=== PATIENT | female | born 1975 | race Caucasian/White ===

== ENCOUNTER → 2018-06-01 | Outpatient (CLI) | payer BC ==
[~2018-06-01] MED LIST: GADOBUTROL 10 MMOL/10 ML (GADAVIST) VIAL IV ONE
--- NOTE | 2018-06-01 16:37 | Diagnostic Imaging Report ---
PROCEDURE: MR imaging of the brain with and without contrast. TECHNIQUE: Multiplanar, multisequence MR imaging of the brain was performed with and without contrast. INDICATION: Reported pituitary lesion. COMPARISON: None available. FINDINGS: Dedicated sequences through the sella demonstrate normal morphology with no suspicious mass or enhancement. No abnormal intracranial signal or enhancement. Normal morphology including the major midline structures, posterior fossa, and cerebellopontine angles. The orbits are unremarkable on this nondedicated exam. No hydrocephalus or extra-axial fluid collections. Normal intracranial flow voids. The paranasal sinuses and mastoids are clear. Normal bone marrow signal. IMPRESSION: Normal MRI of the brain without and with IV contrast. Specifically, there is no evidence of a mass in the sella. Dictated by: Dictated on workstation # [id number]
== END ==
LOC: RAD 15:02
PROVIDERS: ATTEND Internal Medicine
DX: E23.6 Other disorders of pituitary gland (principal)
CPT/HCPCS: 70553

== ENCOUNTER 2018-10-24 12:40 | Emergency (ER) | payer BC ==
[~2018-10-24] VITALS: Ht 175.3 cm; Wt 109.8 kg
--- OUTSIDE RECORDS SUMMARY | 2018-10-24 12:46 | XMS REPORT | Referral Summary ---
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 Discharge Disposition: 01-Home or Self Care Attending Physician: Ian Albert MD Vital Signs Most recent to 1 oldest [Reference Range]: Peripheral Pulse 87 bpm Rate [60-100 bpm] (10/01/17 2:51 PM) Blood Pressure 98/72 mmHg [90-140/60-90 mmHg] (10/01/17 2:51 PM) Problem List Condition Effective Dates Status Health Status Informant Acute Resolved pain(Confirmed) Asthma(Confirmed) Active At risk for activity Resolved intolerance(Confirme d)1 Bronchitis(Confirmed Active ) Depression(Confirmed Active ) Fibromyalgia(Confirm Active patient ed) Greg's Active disease(Confirmed) Hay fever(Confirmed) Active IBS (irritable bowel Active syndrome)(Confirmed) Impaired gas Resolved exchange(Confirmed)2 Migraine(Confirmed) Active patient Pituitary Active tumor(Confirmed) UTI (urinary tract Active infection)(Confirmed ) Chicken Active pox(Confirmed) 1Problem added automatically by system based on initiation of At Risk for Activity Intolerance Plan of Care 2Problem added automatically by system based on initiation of Impaired Gas Exchange Plan of Care Allergies, Adverse Reactions, Alerts Substance Reaction Severity Status Menthol Active Vicks VapoRub Active Medications acetaminophen 650 mg oral tablet, extended release 1,300 mg 2 tabs, Oral, q8hr, as needed for pain, # 24 tabs, 0 Refill(s) Start Date: 09/14/17 Status: Ordered Botox 0 Refill(s) Start Date: 10/01/17 Status: Ordered Claritin 10 mg, Oral, Daily, 0 Refill(s) Start Date: 09/14/16 Status: Ordered Colace 100 mg oral capsule 100 mg 1 caps, Oral, BID, take while taking narcotic pain medication to prevent constipation. May purchase OTC, # 180 caps, 0 Refill(s) Start Date: 01/27/17 Status: Ordered cyclobenzaprine 20 mg, Oral, Bedtime (once a day), 1-2 tablets, 0 Refill(s) Start Date: 09/14/16 Status: Ordered Effexor XR 75 mg, Oral, Daily, Take with 150mg cap to equal 225mg., 0 Refill(s) Start Date: 09/14/16 Status: Ordered Flonase 50 mcg/inh nasal spray 2 sprays, Nasal, Daily, 0 Refill(s) Start Date: 01/26/17 Status: Ordered Lyrica 225 mg, Oral, Daily, 0 Refill(s) Start Date: 09/14/16 Status: Ordered Maxalt 10 mg, Oral, Daily, as needed for migraine headache, 0 Refill(s) Start Date: 09/14/16 Status: Ordered meloxicam 15 mg oral tablet 15 mg 1 tabs, Oral, Daily, # 30 tabs, 0 Refill(s) Start Date: 09/14/17 Status: Ordered NexIUM 20 mg oral delayed release capsule 20 mg 1 caps, Oral, Daily, 0 Refill(s) Start Date: 01/26/17 Status: Ordered ProAir HFA 90 mcg/inh inhalation aerosol 2 puffs, Inhalation, QID, as needed for wheezing, 0 Refill(s) Start Date: 01/26/17 Status: Ordered Singulair 10 mg, Oral, Daily, 0 Refill(s) Start Date: 09/14/16 Status: Ordered Synthroid 25 mcg (0.025 mg) oral tablet 25 mcg 1 tabs, Oral, Daily, # 90 tabs, 1 Refill(s), [facility] [address], 1 tabs Oral Daily Start Date: 10/01/17 Status: Ordered topiramate 100 mg, Oral, BID, 0 Refill(s) Start Date: 01/26/17 Status: Ordered venlafaxine 150 mg oral capsule, extended release 150 mg 1 caps, Oral, Daily, Take with 75mg cap, 0 Refill(s) Start Date: 01/26/17 Status: Ordered Zofran 8 mg, Oral, q8hr, as needed for nausea/vomiting, 0 Refill(s) Start Date: 09/14/16 Status: Ordered ZyrTEC 10 mg, Oral, qPM, 0 Refill(s) Start Date: 09/14/16 Status: Ordered Results No data available for this section Immunizations Given and Recorded Vaccine Date Status Refusal Reason influenza virus vaccine, inactivated 01/27/17 Given Procedures Procedure Date Related Diagnosis Body Site Status Open Reduction Internal Fixation Ankle 01/27/17 Completed (Right)1 Arm repair Completed 1auto-populated from documented surgical case Social History Social History Type Response Smoking Status Never smoker entered on: 09/14/16 Assessment and Plan Extracted from: Title: Office Visit Note Author: Ian Albert MD Date: 10/01/17 1.Pituitary tumor Pituitary function is normal. Overnight dexamethasone suppression test is negative. Serum prolactin is normal. Repeat MRI in6 month. 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 Recheck TSH and free T4 in 6 weeks. Follow-up in 6 month.
--- OUTSIDE RECORDS SUMMARY | 2018-10-24 12:46 | XMS REPORT | Referral Summary ---
Author Author [facility] Organization [facility] Address Unknown Phone Unavailable Encounter [facility] [id number] Date(s): 09/14/16 - 09/14/[address] [facility] [address] [place] [address] Discharge Diagnosis: Closed head injury Discharge Diagnosis: Headache Discharge Disposition: 01-Home or Self Care Attending Physician: Romelia Mckinney DO Admitting Physician: Romelia Mckinney DO Vital Signs Most recent to 1 oldest [Reference Range]: Temperature Oral 36.6 degC [35.8-37.3 degC] (09/14/16 5:30 PM) Peripheral Pulse 86 bpm Rate [60-100 bpm] (09/14/16 6:40 PM) Respiratory Rate 16 br/min [14-20 br/min] (09/14/16 6:40 PM) Blood Pressure 108/75 mmHg [90-140/60-90 mmHg] (09/14/16 6:40 PM) SpO2 98 % (09/14/16 6:40 PM) Problem List Condition Effective Dates Status Health Status Informant Fibromyalgia(Confirm Active patient ed) Migraine(Confirmed) Active patient Allergies, Adverse Reactions, Alerts No Known Allergies Medications Claritin Daily, 0 Refill(s) Start Date: 09/14/16 Status: Ordered cyclobenzaprine Oral, 0 Refill(s) Start Date: 09/14/16 Status: Ordered Effexor XR Oral, Daily, 0 Refill(s) Start Date: 09/14/16 Status: Ordered Lyrica Oral, 0 Refill(s) Start Date: 09/14/16 Status: Ordered Maxalt Oral, Daily, 0 Refill(s) Start Date: 09/14/16 Status: Ordered Mobic Oral, Daily, 0 Refill(s) Start Date: 09/14/16 Status: Ordered Singulair Daily, 0 Refill(s) Start Date: 09/14/16 Status: Ordered verapamil 0 Refill(s) Start Date: 09/14/16 Status: Ordered Zofran 0 Refill(s) Start Date: 09/14/16 Status: Ordered ZyrTEC Daily, 0 Refill(s) Start Date: 09/14/16 Status: Ordered Results No data available for this section Immunizations No data available for this section Procedures Procedure Date Related Diagnosis Body Site Arm repair Social History Social History Type Response Smoking Status Never smoker Assessment and Plan No data available for this section
--- OUTSIDE RECORDS SUMMARY | 2018-10-24 12:46 | XMS REPORT ---
Author Author [facility]. Medical Staff Organization [facility] Address [address] [place] [address] Phone [phone] Summary purpose CCDA Sent to [facility] Chief Complaint and Reason for Visit Admit Diagnosis 1 MIGRAINE W AURA W/O SM Problem list No authorized problems tracked for continuity of care are available for this vis it. Encounters No authorized problems tracked for encounter diagnoses are available for this vi sit. Medications No home medications recorded for this patient visit Allergies, adverse reactions, alerts Allergen Category Ingredient Status Reaction Severity Onset wheat Drug wheat Active Nausea Moderate Adolescence Pork/Porcine Containing Products Drug Pork/Porcine Containing Products Active Nausea Moderate Adolescence Loudon Drug Loudon Active Nausea Moderate Adolescence lettuce Food lettuce Active Nausea Moderate Adolescence ORANGES Food ORANGES Active Nausea Moderate Adolescence Immunizations No immunizations recorded for this patient visit Relevant diagnostic tests and/or laboratory data No authorized results are available for this patient visit History of procedures Procedure Code Code Type Description Date Performed Performing Physician 98779 CPT-4 EMERGENCY DEPT VISIT 08-07-2014 ANGELICA BERMUDEZ 83288 CPT-4 THER/PROPH/DIAG INJ IV PUSH 08-07-2014 ANGELICA BERMUDEZ 87507 CPT-4 THER/PROPH/DIAG INJ SC/IM 08-07-2014 ANGELICA BERMUDEZ J2550 CPT-4 PROMETHAZINE HCL INJECTION 08-07-2014 ANGELICA BERMUDEZ J1100 CPT-4 DEXAMETHASONE SODIUM PHOS 08-07-2014 ANGELICA BERMUDEZ J1885 CPT-4 KETOROLAC TROMETHAMINE INJ 08-07-2014 ANGELICA BERMUDEZ Functional status Cognitive Status Finding Observation Time Level of Consciousne Alert 26-55-004527:21 Oriented to Person Yes 34-28-188002:[address] Yes 80-87-695616:21 Oriented to Time Yes 18-31-497131:21 Vital signs Type Value Date Respirations 20 64-40-465177:19 Pulse 95 53-12-017804:19 O2 Saturation 95% 66-05-380184:19 Systolic Blood Press 109mm/HG 59-77-191147:19 Diastolic Blood Pres 80mm/HG 14-88-435761:19 Temperature (Fahr) 97.8Degrees :19 Social history Type Value Smoking Status NEVER SMOKER Treatment Plan No treatment plan text is available for this visit. Hospital discharge instructions No discharge instruction text is available for this visit.
--- OUTSIDE RECORDS SUMMARY | 2018-10-24 12:46 | XMS REPORT ---
Author Author [facility]. Medical Staff Organization [facility] Address [address] [place] [address] Phone [phone] Summary purpose CCDA Sent to [facility] Chief Complaint and Reason for Visit Admit Diagnosis 1 MIGRAINE W AURA W/O SM Problem list No authorized problems tracked for continuity of care are available for this vis it. Encounters No authorized problems tracked for encounter diagnoses are available for this vi sit. Medications Home Medications Medication Directions Started Status Source montelukast 10 mg tablet 1 tablet oral -Daily Current cyclobenzaprine 10 mg tablet 1-2 tablet oral At bed time Current Nexium 24HR 20 mg capsule,delayed release 1 capsule oral -Daily Current Effexor XR 150 mg capsule,extended release 1 capsule oral -Daily Current fluticasone 50 mcg/actuation blister powder for inhalation 2 spray inhl -Daily Current loratadine 10 mg tablet 1 tablet oral -Daily Current meloxicam 15 mg tablet 1 tablet oral -Daily Current topiramate 100 mg tablet 1 tablet oral 2 times per day Current Lyrica 225 mg capsule 1 capsule oral -Daily Current Zofran 8 mg tablet 1 tablet oral As Needed Every 8 Hours Current amoxicillin 875 mg-potassium clavulanate 125 mg tablet 1 capsule oral 2 times per day Current rizatriptan 10 mg tablet 1 tablet oral As needed Current Mucinex D Maximum Strength 120 mg-1,200 mg tablet,extended release 1 tablet oral As Needed Every 4 Hours Current Allergies, adverse reactions, alerts Allergen Category Ingredient Status Reaction Severity Onset wheat Drug wheat Active Nausea Moderate Adolescence Pork/Porcine Containing Products Drug Pork/Porcine Containing Products Active Nausea Moderate Adolescence Phoenix Drug Phoenix Active Nausea Moderate Adolescence lettuce Food lettuce Active Nausea Moderate Adolescence ORANGES Food ORANGES Active Nausea Moderate Adolescence Immunizations No immunizations recorded for this patient visit Relevant diagnostic tests and/or laboratory data No authorized results are available for this patient visit History of procedures Procedure Code Code Type Description Date Performed Performing Physician 82762 CPT-4 EMERGENCY DEPT VISIT 06-16-2014 MALORIE MAYNARD 48096 CPT-4 THER/PROPH/DIAG INJ, SC/IM 06-16-2014 MALORIE MAYNARD J1885 CPT-4 KETOROLAC TROMETHAMINE INJ 06-16-2014 MALORIE MAYNARD J2550 CPT-4 PROMETHAZINE HCL INJECTION 06-16-2014 MALORIE MAYNARD Functional status Cognitive Status Finding Observation Time Level of Consciousne Alert :32 Oriented to Person Yes :[address] Yes :32 Oriented to Time Yes 08-10-767502:32 Vital signs Type Value Date Respirations 12 29-88-279802:35 Pulse 74 :21 O2 Saturation 96% :35 Systolic Blood Press 110mm/HG 15-89-938371:21 Diastolic Blood Pres 68mm/HG 94-03-854460:21 Temperature (Fahr) 97.5Degrees :35 Social history Type Value Smoking Status NEVER SMOKER Treatment Plan No treatment plan text is available for this visit. Hospital discharge instructions No discharge instruction text is available for this visit.
--- OUTSIDE RECORDS SUMMARY | 2018-10-24 12:46 | XMS REPORT | Referral Summary ---
Author Author [facility] Organization [facility] Address Unknown Phone Unavailable Encounter [facility] [id number] Date(s): 01/26/17 - 01/29/17 [facility] [address] [place] [address] [phone] Discharge Disposition: 01-Home or Self Care Attending Physician: Dwaine Aguilera MD Admitting Physician: Dwaine Aguilera MD Vital Signs Most recent to 1 oldest [Reference Range]: Temperature Oral 36.6 degC [35.8-37.3 degC] (01/29/17 4:00 PM) Temperature Skin 36.1 degC [36-37 degC] (01/27/17 8:14 AM) Temperature Temporal 36 degC Artery [36.3-37.8 *LOW* degC] (01/27/17 6:00 AM) Peripheral Pulse 103 bpm Rate [60-100 bpm] *HI* (01/29/17 4:00 PM) Heart Rate Monitored 75 bpm [60-100 bpm] (01/27/17 10:08 AM) Respiratory Rate 16 br/min [14-20 br/min] (01/29/17 4:00 PM) Blood Pressure 122/77 mmHg [90-140/60-90 mmHg] (01/29/17 4:00 PM) Mean Arterial 75 mmHg Pressure, Cuff (01/27/17 9:20 AM) SpO2 96 % (01/29/17 4:00 PM) Problem List Condition Effective Dates Status Health Status Informant Acute Resolved pain(Confirmed) At risk for activity Resolved intolerance(Confirme d)1 Fibromyalgia(Confirm Active patient ed) Impaired gas Resolved exchange(Confirmed)2 Migraine(Confirmed) Active patient 1Problem added automatically by system based on initiation of At Risk for Activity Intolerance Plan of Care 2Problem added automatically by system based on initiation of Impaired Gas Exchange Plan of Care Allergies, Adverse Reactions, Alerts Substance Reaction Severity Status Vicks VapoRub Active Medications Claritin 10 mg, Oral, Daily, 0 Refill(s) [...] 0 Refill(s) Start Date: 09/14/16 Status: Ordered NexIUM 20 mg oral delayed release capsule 20 mg 1 caps, Oral, Daily, 0 Refill(s) Start Date: 01/26/17 Status: Ordered Percocet 5/325 oral tablet 1-2 tabs, Oral, q4hr, Pain Moderate (4-6), not to exceed 10 tablets/24 hours; ta ke with food to prevent nausea, # 86 tabs, 0 Refill(s) Start Date: 01/28/17 Stop Date: 02/28/17 Status: Ordered ProAir HFA 90 mcg/inh inhalation aerosol 2 puffs, Inhalation, QID, as needed for wheezing, 0 Refill(s) Start Date: 01/26/17 Status: Ordered Singulair 10 mg, Oral, Daily, 0 Refill(s) Start Date: 09/14/16 Status: Ordered topiramate 100 mg, Oral, BID, 0 Refill(s) Start Date: 01/26/17 Status: Ordered venlafaxine 150 mg oral capsule, extended release 150 mg 1 caps, Oral, Daily, Take with 75mg cap, 0 Refill(s) Start Date: 01/26/17 Status: Ordered verapamil 80 mg, Oral, qPM, 0 Refill(s) Start Date: 09/14/16 Status: Ordered verapamil 40 mg, Oral, qAM, 0 Refill(s) Start Date: 01/26/17 Status: Ordered Walker (DME) DME Item FWW Dx: R trimalleolar ankle fracture S/P ORIF Duration: 16 weeks H: 176.53 cm W: 123.9 kg, See Instructions, # 1 Each, 0 Refill(s), Supply Start Date: 01/27/17 Status: Ordered Wheelchair (DME) DME Item wheelchair with leg lifts Dx: R trimalleolar ankle fracture S/P ORIF Duration: 16 weeks H: 176.53 W:123.9kg, See Instructions, # 1 Each, 0 Refill(s ), Supply Start Date: 01/28/17 Status: Ordered Xarelto 10 mg oral tablet 10 mg 1 tabs, Oral, Daily, take daily at 9:00 AM until gone for DVT prevention, # 20 tabs, 0 Refill(s) Start Date: 01/27/17 Status: Ordered Zofran 8 mg, Oral, q8hr, as needed for nausea/vomiting, 0 Refill(s) Start Date: 09/14/16 Status: Ordered ZyrTEC 10 mg, Oral, qPM, 0 Refill(s) Start Date: 09/14/16 Status: Ordered Results Hematology Most recent to 1 oldest [Reference Range]: WBC [4.8-10.8 6.8 10*3/uL 10*3/uL] (01/29/17 5:15 AM) RBC [4.00-5.20] 3.84 *LOW* (01/29/17 5:15 AM) Hgb [12.0-16.0 10.9 gm/dL gm/dL] *LOW* (01/29/17 5:15 AM) Hct [37.0-47.0 %] 35.0 % *LOW* (01/29/17 5:15 AM) MCV [82.0-99.0 fL] 91.1 fL (01/29/17 5:15 AM) MCH [27.0-32.0 pg] 28.4 pg (01/29/17 5:15 AM) MCHC [32.0-36.0 31.1 gm/dL gm/dL] *LOW* (01/29/17 5:15 AM) RDW [11.5-14.5 %] 14.1 % (01/29/17 5:15 AM) Platelet [150-400 225 10*3/uL 10*3/uL] (01/29/17 5:15 AM) MPV [9.4-12.4 fL] 10.2 fL (01/29/17 5:15 AM) Immature 0.3 % Granulocytes (01/26/17 7:15 PM) [0.0-1.0 %] Neutrophils [51-75 70 % %] (01/26/17 7:15 PM) Lymphocytes [20-46 21 % %] (01/26/17 7:15 PM) Monocytes [4-11 %] 6 % (01/26/17 7:15 PM) Eosinophils [0-4 %] 3 % (01/26/17 7:15 PM) Basophils [0-2 %] 0 % (01/26/17 7:15 PM) Neutro Absolute 4.73 [1.90-7.00] (01/26/17 7:15 PM) Lymph Absolute 1.44 [0.80-3.30] (01/26/17 7:15 PM) Hand Absolute 0.41 [0.30-1.00] (01/26/17 7:15 PM) Eos Absolute 0.19 [0.00-0.50] (01/26/17 7:15 PM) Baso Absolute 0.01 [0.00-0.20] (01/26/17 7:15 PM) Nucleated RBC 0.0 /100 WBC Automated [0 /100 (01/26/17 7:15 PM) WBC] Coagulation Most recent to 1 oldest [Reference Range]: INR [0.9-1.2] 1.2 (01/26/17 7:15 PM) Chemistry Most recent to 1 oldest [Reference Range]: Sodium Lvl [136-144 140 mEq/L mEq/L] (01/29/17 5:15 AM) Potassium Lvl 3.9 mEq/L [3.6-5.1 mEq/L] (01/29/17 5:15 AM) Chloride [99-109 107 mEq/L mEq/L] (01/29/17 5:15 AM) CO2 [22-32 mEq/L] 25 mEq/L (01/29/17 5:15 AM) AGAP [3-20 mEq/L] 8 mEq/L (01/29/17 5:15 AM) BUN [4-20 mg/dL] 10 mg/dL (01/29/17 5:15 AM) Glucose Lvl [70-100 97 mg/dL mg/dL] (01/29/17 5:15 AM) Creatinine Lvl 0.98 mg/dL [0.44-1.03 mg/dL] (01/29/17 5:15 AM) eGFR [>60 mL/min] >60 mL/min 1 (01/29/17 5:15 AM) Calcium Lvl 8.1 mg/dL [8.6-10.0 mg/dL] *LOW* (01/29/17 5:15 AM) Albumin Lvl [3.5-4.8 3.1 gm/dL gm/dL] *LOW* (01/26/17 7:15 PM) Total Protein 6.0 gm/dL [6.1-7.9 gm/dL] *LOW* (01/26/17 7:15 PM) Globulin [1.9-4.3 2.9 gm/dL gm/dL] (01/26/17 7:15 PM) ALT [14-54 U/L] 10 U/L *LOW* (01/26/17 7:15 PM) AST [15-41 U/L] 14 U/L *LOW* (01/26/17 7:15 PM) Alk Phos [26-104 65 U/L U/L] (01/26/17 7:15 PM) Bili Total [0.2-1.2 0.2 mg/dL 2 mg/dL] (01/26/17 7:15 PM) Blood Glucose, 94 mg/dL Capillary [70-100 (01/27/17 5:15 AM) mg/dL] 1Result Comment: Multiply eGFR results by 1.21 for race. 2Result Comment: Naproxen, specifically the metabolite O-desmethylnaproxen, may cause spurious elevation in Total Bilirubin levels. Immunizations Given and Recorded Vaccine Date Status Refusal Reason influenza virus vaccine, inactivated 01/27/17 Given Procedures Procedure Date Related Diagnosis Body Site Open Reduction Internal Fixation Ankle 01/27/17 (Right)1 Arm repair 1auto-populated from documented surgical case Social History Social History Type Response Smoking Status Never smoker entered on: 09/14/16 Assessment and Plan No data available for this section
--- OUTSIDE RECORDS SUMMARY | 2018-10-24 12:46 | XMS REPORT | Referral Summary ---
Author Author [facility] Organization [facility] Address Unknown Phone Unavailable Care Team Providers Care Sap Director Name Role Phone Freddie Joseph PCP Encounter [facility] [id number] Date(s): 09/14/17 - 09/14/17 [facility] [address] [place], [place] [address] Encounter Diagnosis Pituitary tumor (Discharge Diagnosis) - 09/14/17 Discharge Disposition: 01-Home or Self Care Attending Physician: Ian Albert MD Vital Signs Most recent to 1 oldest [Reference Range]: Peripheral Pulse 112 bpm Rate [60-100 bpm] *HI* (09/14/17 12:56 PM) Blood Pressure 118/78 mmHg [90-140/60-90 mmHg] (09/14/17 12:56 PM) Problem List Condition Effective Dates Status Health Status Informant Acute Resolved pain(Confirmed) At risk for activity Resolved intolerance(Confirme d)1 Fibromyalgia(Confirm Active patient ed) Impaired gas Resolved exchange(Confirmed)2 Migraine(Confirmed) Active patient Pituitary Active tumor(Confirmed) 1Problem added automatically by system based on [...] 0 Refill(s) Start Date: 09/14/17 Status: Ordered Claritin 10 mg, Oral, Daily, [...] Refill(s) Start Date: 09/14/16 Status: Ordered Results Chemistry Most recent to 1 oldest [Reference Range]: LH 6.6 mIU/mL 1 (09/14/17 2:16 PM) FSH 4.4 mIU/mL 2 (09/14/17 2:16 PM) Prolactin [5.2-26.5 6.1 ng/mL ng/mL] (09/14/17 2:16 PM) Cortisol AM [3-20 7 mcg/dL mcg/dL] (09/14/17 2:16 PM) T4 Free [0.7-1.5 0.8 ng/dL ng/dL] (09/14/17 2:16 PM) TSH [0.35-4.94 2.85 mcIU/mL mcIU/mL] (09/14/17 2:16 PM) Thyroperoxidase Ab 58 Intl Units/mL (TPO) [0-6 Intl *HI* Units/mL] (09/14/17 2:16 PM) Thyroglob Ab [0-5 16 Intl Units/mL Intl Units/mL] *HI* (09/14/17 2:16 PM) Estradiol Lvl 192 pg/mL 3 (09/14/17 2:16 PM) 1Result Comment: Adult Female normal for Luteinizing Hormone: Follicular phase: 1.8 - 11.8 mIU/mL Mid-cycle: 7.6 - 89.1 mIU/mL Luteal phase: <1 - 14.0 mIU/mL Post-menopausal: 5.2 - 70.0 mIU/mL 2Result Comment: Adult Female ranges: Follicular: 3.0 - 8.1 mIU/mL Mid-cycle: 2.6 - 16.7 mIU/mL Luteal Phase 1.4 - 5.5 mIU/mL Post-menopausal 26.7 - 133.4 mIU/mL 3Result Comment: Normal ranges: Menopausal: 0 - 28 pg/mL Treated menopausal 0 - 144 pg/mL Follicular phase: 21 - 251 pg/mL Mid-Cycle Phase 38 - 649 pg/mL Luteal phase: 21 - 312 pg/mL Falsely elevated Estradiol results may be seen in patients taking the drug Fulvestrant. Immunizations Given and Recorded Vaccine Date Status [...] Visit Note Author: Ian Albert MD Date: 09/14/17 1.Pituitary tumor Check ACTH and cortisol. Overnight dexamethasone suppression test. Check serum prolactin. Check TSH with free T4 and thyroid antibodies. Follow-up after labs. Ordered: Adrenocorticotropic Hormone-[facility] Cortisol AM Estradiol Level Free T4 FSH and LH Insulin-Like Growth Factor-1,LC-MS,S-[facility] Prolactin Level Thyroglobulin Antibody Thyroperoxidase Ab (TPO) TSH 3rd Generation
--- OUTSIDE RECORDS SUMMARY | 2018-10-24 12:47 | XMS REPORT ---
Author Author [facility]. Medical Staff Organization [facility]. Address [address] [place] [address] Phone [phone] Summary purpose CCDA Sent to [facility] Chief Complaint and Reason for Visit Admit Diagnosis 1 FEVER NOS Problem list No authorized problems tracked for continuity of care are available for this vis it. Encounters No authorized problems tracked for encounter diagnoses are available for this vi sit. Medications No home medications recorded for this patient visit Allergies, adverse reactions, alerts No allergy information is available for this patient. Immunizations No immunizations recorded for this patient visit Relevant diagnostic tests and/or laboratory data No authorized results are available for this patient visit History of procedures Procedure Code Code Type Description Date Performed Performing Physician 98798 CPT-4 INFLUENZA ASSAY W/OPTIC 05-07-2014 [facility] 27064 CPT-4 INFLUENZA ASSAY W/OPTIC 05-07-2014 [facility] Functional status No functional or cognitive status observations are available for this visit. Vital signs No authorized vital signs are available for this visit. Social history No Social History or smoking status observations were recorded for this visit. ( Unknown if ever smoked.) Treatment Plan No treatment plan text is available for this visit. Hospital discharge instructions No discharge instruction text is available for this visit.
--- OUTSIDE RECORDS SUMMARY | 2018-10-24 12:47 | XMS REPORT ---
Author Author [facility]. Medical Staff Organization [facility]. Address [address] [place] [address] Phone [phone] Summary purpose CCDA Sent to [facility] Chief Complaint and Reason for Visit No authorized Reason for Visit (Admitting Diagnosis) is available for this visit . Problem list No authorized problems tracked for [...] for this patient visit History of procedures No procedures recorded for this patient visit. Functional status No functional or cognitive status [...]
--- OUTSIDE RECORDS SUMMARY | 2018-10-24 12:47 | XMS REPORT | Continuity of Care Document ---
Author Author [facility] Organization [facility] Address [address] [place] [address] Care Team Providers Care Telecommunications Field Technician Name Role Phone Freddie Joseph PCP Freddie Joseph Attphys Allergies, Adverse Reactions, Alerts Allergen Type Severity Reaction Last Updated Verified Status menthol Allergy Moderate Swelling of Lip/Tongue/Throat April 07, 2018 Y Active Medications Active Medications Medication Dose Units Route Sig Start Date Status Instructions Acetaminophen [8hr Muscle Aches-Pain] 2 EACH PO Twice a Day April 07, 2018 Active Cetirizine Hcl 1 TAB PO Daily April 07, 2018 Active Cyclobenzaprine [Flexeril] 2 TAB PO Bedtime April 07, 2018 Active Docusate Sodium 200 MG PO Twice a Day April 07, 2018 Active Esomeprazole Magnesium [Nexium] 20 MG PO Bedtime April 07, 2018 Active Fluticasone Propionate 2 EACH NS Bedtime April 07, 2018 Active Levothyroxine Tab [Synthroid] 50 MCG PO Before Breakfast April 07, 2018 Active Linaclotide [Linzess] 72 MCG PO 3 TIMES A WEEK April 07, 2018 Active takes every other day Loratadine [Claritin] 10 MG PO Bedtime April 07, 2018 Active Melatonin/Pyridoxine Hcl (B6) [Melatonin 3 Mg Tablet] 1 EACH PO Bedtime April 07, 2018 Active Montelukast [Singulair] 10 MG PO Bedtime April 07, 2018 Active Pregabalin [Lyrica] 225 MG PO Daily April 07, 2018 Active Topiramate 100 MG PO Twice a Day April 07, 2018 Active Venlafaxine Xr [Effexor Xr] 150 MG PO Daily April 07, 2018 Active Venlaflaxine Xr [Effexor Xr] 75 MG PO Daily April 07, 2018 Active Erenumab-Aooe [Aimovig Autoinjector] 70 MG SQ 1 Month April 07, 2018 Active Ondansetron Hcl [Zofran] 4 MG PO Prn April 07, 2018 Active Rizatriptan Benzoate [Maxalt] 10 MG PO Prn April 07, 2018 Active Problem List No problem information available. Procedures Procedure Date Status Provider(s) April 07, 2018 completed Freddie Joseph MD April 07, 2018 completed Freddie Joseph MD Helicobacter pylori Rapid Urease April 07, 2018 active Relevant Diagnostic Tests and/or Laboratory Data No known relevant diagnostic tests, laboratory data, and/or discharge summary. Advance Directives Advance Directive Response Recorded Date/Time Advance Directives No April 07, 2018 8:47am Advance Directives on File No April 07, 2018 8:47am Health Care Proxy No April 07, 2018 8:47am Living Will No April 07, 2018 8:47am Chief Complaint and Reason for Visit Encounter Admit Date Chief Complaint Reason for Visit Departed Surgical Day Care April 07, 2018 8:03am Chronic constipation/Chronic gastritis Hospital Discharge Instructions Query Response Comment Date/Time Activity As tolerated. POST OP APPT W DR JOSEPH FOR 04/07/2018 12:24 Hospital Discharge Medications Medication Dose Units Route Sig Qty Days Order Date Status Instructions Acetaminophen 2 EACH PO Twice a Day April 07, 2018 Active Cetirizine Hcl 1 TAB PO Daily April 07, 2018 Active Cyclobenzaprine 2 TAB PO Bedtime April 07, 2018 Active Docusate Sodium 200 MG PO Twice a Day April 07, 2018 Active Esomeprazole Magnesium 20 MG PO Bedtime April 07, 2018 Active Fluticasone Propionate 2 EACH NS Bedtime April 07, 2018 Active Levothyroxine Tab 50 MCG PO Before Breakfast April 07, 2018 Active Linaclotide 72 MCG PO 3 TIMES A WEEK April 07, 2018 Active takes every other day Loratadine 10 MG PO Bedtime April 07, 2018 Active Melatonin/Pyridoxine Hcl (B6) 1 EACH PO Bedtime April 07, 2018 Active Montelukast 10 MG PO Bedtime April 07, 2018 Active Pregabalin 225 MG PO Daily April 07, 2018 Active Topiramate 100 MG PO Twice a Day April 07, 2018 Active Venlafaxine Xr 150 MG PO Daily April 07, 2018 Active Venlaflaxine Xr 75 MG PO Daily April 07, 2018 Active Erenumab-Aooe 70 MG SQ 1 Month April 07, 2018 Active Ondansetron Hcl 4 MG PO Prn April 07, 2018 Active Rizatriptan Benzoate 10 MG PO Prn April 07, 2018 Active Encounters Encounter Facility Location Admit/Visit Date Discharge/Departure Date Attending Provider Departed Surgical Day Care [facility] Services April 07, 2018 8:03am April 07, 2018 1:09pm Freddie Joseph Functional Status No known functional status. Immunizations No known immunizations. Payers Payer Name Policy Type Covered Alliance Party Covered Alliance Party Id Relationship Subscriber Subscriber Id Camden Álvaro [facility] Commercial [id number] Self/Same As Patient [id number] OM Latam [id number] Self Pay Personal Payment (Suárez - No Insurance) Plan of Care Instructions [facility] [facility] Social History Query Response Date Recorded Comment substance use type does not use April 07, 2018 9:02am Vital Signs Vital Reading Result Reference Range Collection Date/Time Height 5 ft 9.5 in April 07, 2018 8:15am Weight 112.5 kg April 07, 2018 8:15am Temperature 97.4 F 96.8 F-100.4 F April 07, 2018 11:50am Pulse 80 BPM 60-100 April 07, 2018 12:45pm Respiration 15 RPM 10-24 April 07, 2018 12:45pm Pulse Oximetry 98 % 90-100 April 07, 2018 12:45pm Blood Pressure Systolic 108 -139 April 07, 2018 12:45pm Blood Pressure Diastolic 73 -89 April 07, 2018 12:45pm Body Mass Index 36.1 April 07, 2018 8:15am
--- OUTSIDE RECORDS SUMMARY | 2018-10-24 12:47 | XMS REPORT | Continuity of Care Document ---
Author Organization Unknown Address Unknown Allergies Active Description Code Type Severity Reaction Onset Reported/Identified Relationship to Patient Clinical Status Yes No Known Drug Allergy 51895179 Drug Allergy N/A N/A Confirmed but inactive Yes MENTHOL 6750 N/A N/A Yes MENTHOL 5999112 Drug Allergy N/A N/A Yes NKDA N/A N/A Yes VICKS Drug Allergy N/A N/A Yes methol [id number] Miscellaneous Allergy Moderate rash~shortness of breath Yes [place] 6695 Drug Allergy Moderate Nausea 06/16/2014 Yes lettuce Food Allergy Moderate Nausea 06/16/2014 Yes ORANGES Food Allergy Moderate Nausea 06/16/2014 Yes Pork/Porcine Containing Products 994599 Drug Allergy Moderate Nausea 06/16/2014 Yes wheat 28412 Drug Allergy Moderate Nausea 06/16/2014 Yes menthol 1991 Drug Allergy N/A N/A 03/28/2016 Confirmed or Verified Medications Medication Packaging Start Date Stop Date Route Dosage Sig [id number] 12/12/2014 ORAL twice daily [id number] 01/10/2015 ORAL twice daily topiramate 100 MG Oral Tablet 05/05/2018 1 meloxicam 15 MG Oral Tablet 05/05/2018 1 meloxicam 7.5 MG Oral Tablet 05/25/2018 1 Q1D topiramate 100 MG Oral Tablet 08/08/2018 1 Problems Date Dx Coded Attending Type Code Diagnosis Diagnosed By 02/25/2012 Kasandra 785.0 TACHYCARDIA NOS 12/10/2012 LARA SANTO, JOANN Slaughter 724.1 PAIN IN THORACIC SPINE 03/15/2013 LINDA REIS MD 719.43 JOINT PAIN-FOREARM 03/15/2013 LINDA REIS MD 914.0 ABRASION HAND 03/15/2013 LINDA REIS MD E917.8 OTH STATNRY OBJ W/ FALL 05/07/2014 LINDA REIS MD 780.60 FEVER NOS 05/07/2014 KELSEY COLE MD, LINDA Slaughter 786.2 COUGH 06/16/2014 D 346.00 MIGRAINE W AURA W/O SM 06/16/2014 D 461.8 OTHER ACUTE SINUSITIS 06/17/2014 Cherelle SANTO, Quinn Sanchez 346.00 Classic migraine 08/07/2014 Cherelle SANTO, Quinn Sanchez 346.00 Classic migraine 08/07/2014 Cherelle SANTO, Quinn Sanchez G43.109 Migraine with aura, not intractable, without status migrainosus 08/07/2014 LARA SANTO, ANGELICA Slaughter 346.00 MIGRAINE W AURA W/O SM 05/10/2015 Cherelle SANTO, Quinn Sanchez 461.0 Acute maxillary sinusitis 05/10/2015 Cherelle SANTO, Quinn Sanchez J01.00 Acute maxillary sinusitis, unspecified 12/06/2015 Cherelle SANTO, Quinn Sanchez 788.1 Dysuria 12/06/2015 Cherelle SANTO, Quinn Sanchez 788.1 Dysuria 12/06/2015 Cherelle SANTO, Quinn Sanchez R30.0 Dysuria 12/11/2015 Cherelle SANTO, Quinn Sanchez 780.79 Fatigue 12/11/2015 Cherelle SANTO, Quinn Sanchez R53.82 Chronic fatigue, unspecified 12/11/2015 Cherelle SANTO, Quinn Sanchez 724.2 Low back pain 12/11/2015 Cherelle SANTO, Quinn Sanchez M54.40 Lumbago with sciatica, unspecified side 12/11/2015 Cherelle SANTO, Quinn Sanchez M54.5 Low back pain 03/28/2016 Cherelle SANTO, Quinn Sanchez 462 Acute infective pharyngitis 03/28/2016 Cherelle SANTO, Quinn Sanchez J02.8 Acute pharyngitis due to other specified organisms 03/28/2016 ALYX RAMOS J02.8 Acute pharyngitis due to other specified organisms 03/28/2016 SHERRILL MAYERS, ALYX Gonzáles J02.9 Acute pharyngitis, unspecified 04/16/2016 Quinn Villarreal MD 784.1 Sore throat 04/16/2016 Quinn Villarreal MD R07.0 Pain in throat 06/11/2016 Quinn Villarreal MD E885.9 Fall from other slipping, tripping, or stumbling 06/11/2016 Quinn Villarreal MD W01.0XXA Fall on same level from slipping, tripping and stumbling without subsequent striking against object, initial encounter 06/11/2016 Quinn Villarreal MD W18.49XA Other slipping, tripping and stumbling without falling, initial encounter 06/11/2016 Quinn Villarreal MD 719.41 Shoulder pain 06/11/2016 Quinn Villarreal MD M25.519 Pain in unspecified shoulder 06/11/2016 Quinn Villarreal MD 724.5 Mid back pain 06/11/2016 Quinn Villarreal MD 724.5 Mid back pain 06/11/2016 Quinn Villarreal MD M54.5 Low back pain 06/11/2016 Quinn Villarreal MD 719.46 Knee pain 06/11/2016 Quinn Villarreal MD M25.562 Pain in left knee 08/10/2016 Quinn Villarreal MD 599.0 UTI 08/10/2016 Quinn Villarreal MD N39.0 Urinary tract infection, site not specified 02/18/2018 BISHOP COTE V70.0 ROUTINE GENERAL MEDICAL EXAMINATION AT A HEALTH CARE FACILITY 02/18/2018 BISHOP COTE Z00.00 Encounter for general adult medical examination without abnormal findings 02/18/2018 BISHOP COTE K29.50 Unspecified chronic gastritis without bleeding 02/18/2018 BISHOP COTE K59.09 Other constipation 02/18/2018 BISHOP COTE Z12.31 Encounter for screening mammogram for malignant neoplasm of breast 02/18/2018 BISHOP COTE N94.6 Dysmenorrhea, unspecified 04/22/2018 BRANDT FERREIRA K31.9 Disease of stomach and duodenum, unspecified 04/22/2018 MELISAJESSENIABRANDT F M79.7 Fibromyalgia 09/26/2018 BRANDT FERREIRA F R53.83 Other fatigue 09/26/2018 BRANDT FERREIRA F M79.7 Fibromyalgia 09/26/2018 BRANDT FERREIRA F E03.9 Hypothyroidism, unspecified 10/10/2018 BRANDT FERREIRA F G47.33 Obstructive sleep apnea (adult) (pediatric) 10/10/2018 BRANDT FERREIRA F R53.83 Other fatigue 10/10/2018 BRANDT FERREIRA F F32.9 Major depressive disorder, single episode, unspecified Procedures Code Description [place] [address] ASSAY THYROID STIM HORMONE KELSEY COLE MD, LINDA Bo 02/25/2012 71883 COMPLETE CBC, AUTOMATED KELSEY COLE MD, LINDA R 02/25/2012 66766 PT EVALUATION LARA SANTO, JOANN 11/14/2012 79497 ULTRASOUND LANA BERMUDEZ MD, JOANN 11/14/2012 52579 THERAPEUTIC EXERCISES LARA SANTO, JOANN 11/14/2012 25045 MANUAL LANA BERMUDEZ MD, JOANN 11/14/2012 65232 THERAPEUTIC EXERCISES LARA SANTO, JOANN 11/17/2012 89921 MANUAL LANA BERMUDEZ MD, JOANN 11/17/2012 91429 MANUAL LANA BERMUDEZ MD, JOANN 11/22/2012 67322 ULTRASOUND LANA BERMUDEZ MD, JOANN 11/24/2012 84749 MANUAL LANA BERMUDEZ MD, JOANN 11/24/2012 69162 ULTRASOUND LANA BERMUDEZ MD, JOANN 11/29/2012 92830 MANUAL LANA BERMUDEZ MD, JOANN 11/29/2012 83789 ULTRASOUND LANA BERMUDEZ MD, JOANN 12/01/2012 32610 MANUAL LANA BERMUDEZ MD, JOANN 12/01/2012 18792 ULTRASOUND LANA BERMUDEZ MD, JOANN 12/09/2012 56680 MANUAL LANA BERMUDEZ MD, JOANN 12/09/2012 04748 X-RAY EXAM OF HAND ANGELICA BERMUDEZ MD/04/2013 81704 EMERGENCY DEPT VISIT ANGELICA BERMUDEZ MD 03/15/2013 39554 INFLUENZA ASSAY W/OPTIC LINDA REIS MD 05/07/2014 45703 THER/PROPH/DIAG INJ, SC/IM CAESAR MAYERS, MALORIE L 06/16/2014 94735 EMERGENCY DEPT VISIT EVELINA LINI L 06/16/2014 J1885 KETOROLAC TROMETHAMINE INJ CAESAR MAYERS, MALORIE L 06/16/2014 J2550 PROMETHAZINE HCL INJECTION CAESAR MAYERS MALORIE L 06/16/2014 25889 Therapeutic, prophylatic or diagnostic injection (specify substance or drug); subcutaneous or intram 07/18/2014 FU1MO Follow up appointment in 1 month 07/19/2014 95452 Office/outpatient visit; established patient, level 4 07/19/2014 04950 THER/PROPH/DIAG INJ, SC/IM ANGELICA BERMUDEZ MD 08/07/2014 32224 THER/PROPH/DIAG INJ, IV PUSH ANGELICA BERMUDEZ MD 08/07/2014 07002 EMERGENCY DEPT VISIT ANGELICA BERMUDEZ MD 08/07/2014 J1100 DEXAMETHOSONE NA PHOSPHATE ANGELICA BERMUDEZ MD 08/07/2014 J1885 KETOROLAC TROMETHAMINE INJ ANGELICA BERMUDEZ MD 08/07/2014 J2550 PROMETHAZINE HCL INJECTION ANGELICA BERMUDEZ MD 08/07/2014 TCARE1 Transfer of Care from Emergency Department 08/08/2014 44061 Office/outpatient visit; established patient, level 4 08/08/2014 76000 Office/outpatient visit; established patient, level 3 08/28/2014 12153 Office/outpatient visit; established patient, level 3 05/10/2015 FOL Set followup appointment at our facility 11/05/2015 29008 Office/outpatient visit; established patient, level 3 11/05/2015 55901 Office/outpatient visit; established patient, level 3 12/06/2015 53967 Office/outpatient visit; established patient, level 3 12/11/2015 92102 Office/outpatient visit; established patient, level 4 12/11/2015 03646 THER/PROPH/DIAG INJ, SC/IM ALYX RAMOS 03/28/2016 57487 EMERGENCY DEPT VISIT ALYX ARMOS 03/28/2016 J0696 CEFTRIAXONE SODIUM INJECTION ALYX RAMOS N 03/28/2016 J1885 KETOROLAC TROMETHAMINE INJ ALYX RAMOS N 03/28/2016 99432 Therapeutic, prophylatic or diagnostic injection (specify substance or drug); subcutaneous or intram 03/28/2016 60141 Therapeutic, prophylactic or diagnostic injection; subcutaneous or intramuscular 03/28/2016 J0696 Ceftriaxone Sodium, per 250 mg 03/28/2016 64045 Therapeutic, prophylatic or diagnostic injection (specify substance or drug); subcutaneous or intram 03/28/2016 89446 Therapeutic, prophylactic or diagnostic injection; subcutaneous or intramuscular 03/28/2016 J0696 Ceftriaxone Sodium, per 250 mg 03/28/2016 31441 Emergency department visit moderate severity 03/28/2016 09017 Particle agglutination screen 04/17/2016 74897 Office/outpatient visit; established patient, level 3 04/17/2016 78418 Radiologic examination, ribs, unilateral; two views 06/11/2016 FU10D Follow up appointment in 10 days 06/11/2016 86940 Office/outpatient visit; established patient, level 4 06/11/2016 95723 Radiologic examination, ribs, unilateral; two views 06/23/2016 72666 Office/outpatient visit; established patient, level 4 06/23/2016 FU10D Follow up appointment in 10 days 06/23/2016 12004 Office/outpatient visit; established patient, level 3 06/27/2016 62347 Urinalysis, nonautomated without microscopy 08/10/2016 27654 Office/outpatient visit; established patient, level 4 08/10/2016 90091 PREVENTIVE MEDICINE- 02/18/2018 33934 EXAM-DETAILED. 04/22/2018 01176 EXAM-DETAILED. 09/26/2018 58490 EXAM-DETAILED. 10/10/2018 Results Test Result Range Influenza A B - 05/07/14 15:26 Influenza A NEG Negative Influenza B NEG Negative TSH - 05/29/14 14:05 TSH 4.49 UIUML 0.50-6.00 CMP, SERUM OR PLASMA - 02/18/18 16:49 GLOBULIN, QN, CALCULATED, SERUM 2.4 g/dL 1.5-4.5 ALT (ALANINE AMINOTRANSFERASE), SERUM OR PLASMA 9 IU/L 0-32 ALBUMIN, SERUM OR PLASMA 4.3 g/dL 3.5-5.5 ALBUMIN:GLOBULIN RATIO, SERUM 1.8 1.2-2.2 CALCIUM, SERUM OR PLASMA 8.9 mg/dL 8.7-10.2 AST/SGOT (ASPARTATE AMINOTRANSFERASE), SERUM OR PLASMA 13 IU/L 0-40 BILIRUBIN, TOTAL, SERUM OR PLASMA <0.2 mg/dL 0.0-1.2 CO2, (CARBON DIOXIDE), TOTAL, SERUM OR PLASMA 23 mmol/L 20- 29 CHLORIDE, SERUM OR PLASMA 105 mmol/L 96-106 CREATININE, SERUM OR PLASMA 0.96 mg/dL 0.57-1.00 GLUCOSE, SERUM OR PLASMA 85 mg/dL 65-99 PROTEIN, TOTAL, SERUM 6.7 g/dL 6.0-8.5 SODIUM, SERUM OR PLASMA 142 mmol/L 134-144 BUN (BLOOD UREA NITROGEN), SERUM OR PLASMA 13 mg/dL 6-24 BUN:CREATININE RATIO, SERUM 14 9-23 ALKALINE PHOSPHATASE, SERUM OR PLASMA 69 IU/L 39-117 EGFR IF NONAFRICN AM 74 mL/min/1.73 >59 EGFR IF AFRICN AM 85 mL/min/1.73 >59 POTASSIUM [MOLES/VOLUME] IN SERUM OR PLASMA 4.1 mmol/L 3.5- 5.2 LH + FSH, SERUM - 09/19/18 13:45 PROLACTIN, SERUM - 09/19/18 13:45 ESTRADIOL, SERUM - 09/19/18 13:45 CORTISOL, FREE, 24-HOUR URINE - 09/19/18 13:45 URINALYSIS COMPLETE, REFLEX CULTURE - 09/26/18 16:43 PROTEIN, DIPSTICK, URINE Negative NEGATIVE/TRACE GLUCOSE, QUAL, URINE Negative NEGATIVE KETONES, URINE DIPSTICK Negative NEGATIVE SPECIFIC GRAVITY, URINE 1.017 1.005-1.030 BILIRUBIN, QUALITATIVE, URINE Negative NEGATIVE HEMOGLOBIN, QUAL, URINE 3+ NEGATIVE CASTS, LIGHT MICROSCOPY, QL, URINE SEDIMENT PROTOCOL MANAGER NRG PH OF URINE BY TEST STRIP 5.5 5.0-7.5 COLOR OF URINE Yellow YELLOW APPEARANCE OF URINE Clear CLEAR LEUKOCYTE ESTERASE [PRESENCE] IN URINE BY TEST STRIP Negative NEGATIVE UROBILINOGEN [MASS/VOLUME] IN URINE BY TEST STRIP 0.2 mg/dL 0.2-1.0 NITRITE [PRESENCE] IN URINE BY TEST STRIP Negative NEGATIVE MICROSCOPIC OBSERVATION [IDENTIFIER] IN URINE SEDIMENT BY LIGHT MICROSCOPY PROTOCOL MANAGER NRG LEUKOCYTES [#/AREA] IN URINE SEDIMENT BY MICROSCOPY HIGH POWER FIELD 0-5 /hpf 0 - 5 ERYTHROCYTES [#/AREA] IN URINE SEDIMENT BY MICROSCOPY HIGH POWER FIELD 3-10 /hpf 0 - 2 EPITHELIAL CELLS [#/AREA] IN URINE SEDIMENT BY MICROSCOPY HIGH POWER FIELD 0-10 /hpf 0 - 10 EPITHELIAL CELLS.RENAL [#/AREA] IN URINE SEDIMENT BY MICROSCOPY HIGH POWER FIELD PROTOCOL MANAGER NRG CASTS [PRESENCE] IN URINE SEDIMENT BY LIGHT MICROSCOPY PROTOCOL MANAGER NRG UNIDENTIFIED CRYSTALS [PRESENCE] IN URINE SEDIMENT BY LIGHT MICROSCOPY PROTOCOL MANAGER NRG CRYSTALS [TYPE] IN URINE SEDIMENT BY LIGHT MICROSCOPY PROTOCOL MANAGER NRG MUCUS [PRESENCE] IN URINE SEDIMENT BY LIGHT MICROSCOPY Present NOT ESTAB. BACTERIA [#/AREA] IN URINE SEDIMENT BY MICROSCOPY HIGH POWER FIELD Few NONE SEEN/FEW YEAST [#/AREA] IN URINE SEDIMENT BY MICROSCOPY HIGH POWER FIELD PROTOCOL MANAGER NRG TRICHOMONAS VAGINALIS [PRESENCE] IN URINE SEDIMENT BY LIGHT MICROSCOPY PROTOCOL MANAGER NRG URINE SEDIMENT COMMENTS BY LIGHT MICROSCOPY NARRATIVE PROTOCOL MANAGER NRG URINALYSIS REFLEX Comment NRG ESR (ERYTHROCYTE SEDIMENTATION RATE), BLOOD - 09/26/18 16:43 ERYTHROCYTE SEDIMENTATION RATE BY WESTERGREN METHOD 14 mm/hr 0-32 C REACTIVE PROTEIN, QN, SERUM OR PLASMA - 09/26/18 16:43 C REACTIVE PROTEIN, QN, SERUM OR PLASMA 10 mg/L 0-10 Encounters ACCT No. Visit Date/Time Discharge Status Pt. Type Provider Facility Loc./Unit Complaint [id number] 03/28/2016 21:45:00 03/28/2016 23:11:00 DIS Emergency ALYX RAMOS [facility] ER [id number] 08/07/2014 02:05:00 08/07/2014 02:49:00 DIS Emergency LARA SANTO, ANGELICA Gonzáles [facility] ER [id number] 05/07/2014 15:14:00 05/07/2014 15:14:00 DIS Outpatient KELSEY COLE MD, [facility] ALAB [id number] 03/15/2013 18:25:00 03/15/2013 19:38:00 DIS Emergency KELSEY COLE MD, [facility] ER [id number] 12/11/2012 00:01:00 01/09/2013 23:59:00 DIS Outpatient JOANN BERMUDEZ MD [id number] 11/14/2012 16:20:00 12/10/2012 23:59:00 DIS Outpatient JOANN BERMUDEZ MD [id number] 06/16/2014 22:15:00 Document Registration [id number] 05/29/2014 14:05:00 Document Registration [id number] 02/25/2012 07:49:00 Document Registration [id number] 08/02/2018 14:45:55 08/02/2018 14:45:55 DIS Outpatient [id number] 08/02/2018 14:45:54 08/02/2018 14:45:54 DIS Outpatient [id number] 08/02/2018 14:45:35 08/02/2018 14:45:35 DIS Outpatient [id number] 12/08/2017 08:05:44 12/08/2017 08:05:44 DIS Outpatient [id number] 12/08/2017 08:05:39 12/08/2017 08:05:40 DIS Outpatient [id number] 11/15/2017 15:00:50 11/15/2017 15:00:50 DIS Outpatient [id number] 09/28/2017 07:14:24 09/28/2017 23:59:59 CLS Outpatient [id number] 09/28/2017 06:37:07 09/28/2017 23:59:59 CLS Outpatient [id number] 09/28/2017 06:46:50 09/28/2017 06:46:50 ACT Outpatient [id number] 09/28/2017 06:46:10 09/28/2017 06:46:10 ACT Outpatient [id number] 09/28/2017 06:45:42 09/28/2017 06:45:43 ACT Outpatient [id number] 09/28/2017 06:45:41 09/28/2017 06:45:41 ACT Outpatient [id number] 09/21/2017 09:07:00 09/21/2017 09:07:00 DIS Outpatient [id number] 09/21/2017 09:06:19 09/21/2017 09:06:19 DIS Outpatient [id number] 07/03/2017 06:38:21 07/03/2017 23:59:59 CLS Outpatient [id number] 07/01/2017 11:03:59 07/01/2017 11:03:59 DIS Outpatient [id number] 06/30/2017 15:24:49 06/30/2017 23:59:59 CLS Outpatient [id number] 06/30/2017 15:23:53 06/30/2017 23:59:59 CLS Outpatient [id number] 06/30/2017 15:23:52 06/30/2017 23:59:59 CLS Outpatient [id number] 06/30/2017 15:23:50 06/30/2017 23:59:59 CLS Outpatient [id number] 06/30/2017 15:23:49 06/30/2017 23:59:59 CLS Outpatient [id number] 06/30/2017 15:16:43 06/30/2017 23:59:59 CLS Outpatient [id number] 06/30/2017 16:38:11 06/30/2017 16:38:11 DIS Outpatient [id number] 06/30/2017 15:34:03 06/30/2017 15:34:04 DIS Outpatient [id number] 06/30/2017 15:24:47 06/30/2017 15:24:47 DIS Outpatient [id number] 06/25/2017 09:23:13 06/25/2017 09:23:13 DIS Outpatient [id number] 06/24/2017 12:46:33 06/24/2017 23:59:59 CLS Outpatient [id number] 06/24/2017 12:49:09 06/24/2017 12:49:09 DIS Outpatient [id number] 06/18/2017 12:09:08 06/18/2017 12:09:08 DIS Outpatient [id number] 06/15/2017 09:06:46 06/15/2017 23:59:59 CLS Outpatient [id number] 06/10/2017 14:20:49 06/10/2017 23:59:59 CLS Outpatient [id number] 05/28/2017 08:41:24 05/28/2017 23:59:59 CLS Outpatient [id number] 05/28/2017 08:41:21 05/28/2017 23:59:59 CLS Outpatient [id number] 05/28/2017 07:04:44 05/28/2017 23:59:59 CLS Outpatient [id number] 05/27/2017 13:56:31 05/27/2017 23:59:59 CLS Outpatient [id number] 05/27/2017 11:53:59 05/27/2017 23:59:59 CLS Outpatient [id number] 05/27/2017 11:17:43 05/27/2017 23:59:59 CLS Outpatient [id number] 05/27/2017 10:17:01 05/27/2017 23:59:59 CLS Outpatient [id number] 05/27/2017 10:13:41 05/27/2017 23:59:59 CLS Outpatient [id number] 05/27/2017 09:53:49 05/27/2017 23:59:59 CLS Outpatient [id number] 05/27/2017 09:53:48 05/27/2017 23:59:59 CLS Outpatient [id number] 05/27/2017 09:53:43 05/27/2017 23:59:59 CLS Outpatient [id number] 05/27/2017 09:48:44 05/27/2017 23:59:59 CLS Outpatient [id number] 05/27/2017 09:48:41 05/27/2017 23:59:59 CLS Outpatient [id number] 05/27/2017 09:47:39 05/27/2017 23:59:59 CLS Outpatient [id number] 05/19/2017 06:41:55 05/19/2017 23:59:59 CLS Outpatient [id number] 05/17/2017 09:12:31 05/17/2017 23:59:59 CLS Outpatient [id number] 05/17/2017 09:10:30 05/17/2017 23:59:59 CLS Outpatient [id number] 05/17/2017 09:01:22 05/17/2017 09:01:22 DIS Outpatient [id number] 03/14/2015 16:04:47 03/14/2015 23:59:59 CLS Outpatient [id number] 03/13/2015 10:48:39 03/13/2015 23:59:59 CLS Outpatient [id number] 03/13/2015 10:09:16 03/13/2015 23:59:59 CLS Outpatient [id number] 03/13/2015 09:58:46 03/13/2015 23:59:59 CLS Outpatient [id number] 03/13/2015 09:36:08 03/13/2015 23:59:59 CLS Outpatient [id number] 03/13/2015 09:17:13 03/13/2015 23:59:59 CLS Outpatient [id number] 03/13/2015 09:17:09 03/13/2015 23:59:59 CLS Outpatient [id number] 03/13/2015 09:01:32 03/13/2015 23:59:59 CLS Outpatient [id number] 03/11/2015 10:04:59 03/11/2015 23:59:59 CLS Outpatient [id number] 03/11/2015 10:06:21 03/11/2015 10:06:27 DIS Outpatient [id number] 01/29/2015 09:40:20 01/29/2015 23:59:59 CLS Outpatient [id number] 01/21/2015 13:22:28 01/21/2015 23:59:59 CLS Outpatient [id number] 01/10/2015 14:24:56 01/10/2015 14:24:56 DIS Outpatient [id number] 12/13/2014 13:04:05 12/13/2014 13:04:05 DIS Outpatient [id number] 12/12/2014 10:42:02 12/12/2014 23:59:59 CLS Outpatient [id number] 12/12/2014 10:35:43 12/12/2014 23:59:59 CLS Outpatient [id number] 12/12/2014 10:35:41 12/12/2014 23:59:59 CLS Outpatient [id number] 12/12/2014 10:35:35 12/12/2014 23:59:59 CLS Outpatient [id number] 12/12/2014 10:33:19 12/12/2014 23:59:59 CLS Outpatient [id number] 12/12/2014 11:58:33 12/12/2014 11:58:33 DIS Outpatient [id number] 12/12/2014 11:57:26 12/12/2014 11:57:29 DIS Outpatient [id number] 12/12/2014 11:13:40 12/12/2014 11:13:43 DIS Outpatient [id number] 12/12/2014 10:44:14 12/12/2014 10:44:15 DIS Outpatient [id number] 12/12/2014 10:41:54 12/12/2014 10:41:55 DIS Outpatient [id number] 12/12/2014 10:39:03 12/12/2014 10:39:04 DIS Outpatient [id number] 12/12/2014 10:35:53 12/12/2014 10:35:53 DIS Outpatient [id number] 12/12/2014 10:35:47 12/12/2014 10:35:49 DIS Outpatient [id number] 12/12/2014 10:35:45 12/12/2014 10:35:46 DIS Outpatient [id number] 12/12/2014 10:33:20 12/12/2014 10:33:20 DIS Outpatient [id number] 12/10/2014 16:29:37 12/10/2014 16:29:37 DIS Outpatient [id number] 12/10/2014 16:29:33 12/10/2014 16:29:35 DIS Outpatient [id number] 12/10/2014 16:29:31 12/10/2014 16:29:31 DIS Outpatient [id number] 12/10/2014 16:29:28 12/10/2014 16:29:29 DIS Outpatient [id number] 10/02/2014 14:44:26 10/02/2014 23:59:59 CLS Outpatient [id number] 10/02/2014 14:43:30 10/02/2014 14:43:30 DIS Outpatient [id number] 10/02/2014 14:43:12 10/02/2014 14:43:13 DIS Outpatient [id number] 09/28/2017 06:37:00 Document Registration [id number] 09/27/2017 15:40:55 Document Registration [id number] 06/30/2017 16:38:12 Document Registration [id number] 06/30/2017 15:42:00 Document Registration [id number] 06/30/2017 15:41:00 Document Registration [id number] 05/27/2017 13:56:29 Document Registration [id number] 05/27/2017 10:12:00 Document Registration [id number] 03/13/2015 16:16:47 Document Registration [id number] 03/13/2015 15:57:44 Document Registration [id number] 03/13/2015 09:14:00 Document Registration [id number] 03/13/2015 09:13:00 Document Registration [id number] 01/11/2015 07:07:29 Document Registration [id number] 01/11/2015 07:07:21 Document Registration [id number] 01/11/2015 07:07:07 Document Registration [id number] 01/11/2015 07:06:55 Document Registration [id number] 01/11/2015 07:06:43 Document Registration [id number] 01/11/2015 07:06:31 Document Registration [id number] 01/11/2015 07:06:27 Document Registration [id number] 01/11/2015 07:06:22 Document Registration [id number] 12/13/2014 06:53:21 Document Registration [id number] 12/13/2014 06:53:18 Document Registration [id number] 12/13/2014 06:53:16 Document Registration [id number] 12/13/2014 06:53:13 Document Registration [id number] 12/13/2014 06:53:10 Document Registration [id number] 12/13/2014 06:52:27 Document Registration [id number] 12/13/2014 06:52:25 Document Registration [id number] 12/13/2014 06:52:22 Document Registration [id number] 12/13/2014 06:52:19 Document Registration [id number] 12/13/2014 06:52:17 Document Registration [id number] 12/13/2014 06:52:14 Document Registration [id number] 12/13/2014 06:52:12 Document Registration [id number] 12/13/2014 06:52:09 Document Registration [id number] 12/13/2014 06:52:06 Document Registration [id number] 12/13/2014 06:52:04 Document Registration [id number] 12/13/2014 06:52:01 Document Registration [id number] 12/13/2014 06:51:58 Document Registration [id number] 12/13/2014 06:51:56 Document Registration [id number] 12/13/2014 06:51:53 Document Registration [id number] 12/13/2014 06:51:50 Document Registration [id number] 12/13/2014 06:51:48 Document Registration [id number] 12/13/2014 06:51:23 Document Registration [id number] 12/13/2014 06:51:21 Document Registration [id number] 12/13/2014 06:51:18 Document Registration [id number] 12/13/2014 06:51:15 Document Registration [id number] 12/13/2014 06:51:13 Document Registration [id number] 12/13/2014 06:51:10 Document Registration [id number] 12/13/2014 06:51:07 Document Registration [id number] 12/13/2014 06:51:05 Document Registration [id number] 12/13/2014 06:51:02 Document Registration [id number] 12/13/2014 06:50:59 Document Registration [id number] 12/13/2014 06:50:56 Document Registration [id number] 12/13/2014 06:50:54 Document Registration [id number] 12/13/2014 06:50:51 Document Registration [id number] 12/13/2014 06:50:48 Document Registration [id number] 12/13/2014 06:50:46 Document Registration [id number] 12/13/2014 06:50:43 Document Registration [id number] 12/13/2014 06:50:40 Document Registration [id number] 12/13/2014 06:50:37 Document Registration [id number] 12/13/2014 06:50:35 Document Registration [id number] 12/13/2014 06:50:32 Document Registration [id number] 12/13/2014 06:50:29 Document Registration [id number] 12/13/2014 06:50:26 Document Registration [id number] 12/13/2014 06:50:13 Document Registration [id number] 12/13/2014 06:49:47 Document Registration [id number] 12/13/2014 06:49:36 Document Registration [id number] 12/12/2014 10:59:00 Document Registration [id number] 08/10/2016 08:13:16 08/10/2016 08:31:33 DIS Outpatient Cherelle SANTO, [facility] [id number] 10/10/2018 10:51:00 10/10/2018 23:59:59 CLS [facility] [id number] 09/26/2018 15:59:00 09/26/2018 23:59:59 CLS [facility] [id number] 04/22/2018 14:44:00 04/22/2018 23:59:59 CLS [facility] [id number] 02/18/2018 15:56:00 02/18/2018 23:59:59 CLS Outpatient [facility] [id number] 09/25/2018 02:42:00 Document Registration [id number] 08/11/2018 11:49:00 Document Registration [id number] 05/27/2018 04:49:00 Document Registration [id number] 05/07/2018 10:44:00 Document Registration
--- OUTSIDE RECORDS SUMMARY | 2018-10-24 12:47 | XMS REPORT ---
Author Author [facility]. Medical Staff Organization [facility]. Address [address] [place] [address] Phone [phone] Summary purpose CCDA Sent to [facility] Chief Complaint and Reason for Visit Admit Diagnosis 1 DISORDER OF THYROID NOS Problem list No authorized problems tracked [...] Pork/Porcine Containing Products Active Nausea Moderate Adolescence [place] [facility] [place] Active Nausea Moderate Adolescence lettuce Food lettuce Active Nausea Moderate Adolescence ORANGES Food ORANGES Active Nausea Moderate Adolescence Immunizations No immunizations recorded for this patient visit Relevant diagnostic tests and/or laboratory data RESULTS Special Chemistry Group [id number] Result Normal Range Units TSH 4.49 0.50-6.00 uIU/mL History of procedures Procedure Code Code Type Description Date Performed Performing Physician 18559 CPT-4 ASSAY THYROID STIM HORMONE 05-29-2013 LINDA ULGEORGIABridger TOROVICTOR MANUEL Functional status No functional or cognitive status [...]
--- OUTSIDE RECORDS SUMMARY | 2018-10-24 12:47 | XMS REPORT ---
Author Author [facility]. Medical Staff Organization [facility]. Address [address] [place] [address] Phone [phone] Summary purpose CCDA Sent to [facility] Chief Complaint and Reason for [...] and/or laboratory data RESULTS [employer] Group [id number] Result Normal Range Units TSH 4.49 0.50-6.00 uIU/mL History of procedures No procedures recorded for [...]
--- OUTSIDE RECORDS SUMMARY | 2018-10-24 12:47 | XMS REPORT | Continuity of Care Document ---
Author Author [facility] Organization [facility] Address [address] [place] [address] Care Team Providers Care Rehabilitation Tech Name Role Phone Freddie Joseph PCP Freddie [...] Date Attending Provider Departed Surgical Day [facility] Periop Services April 07, 2018 8:03am April 07, 2018 1:09pm Freddie Joseph Functional Status No known functional status. Immunizations No known immunizations. Payers Payer Name Policy Type Covered Constitution Party Covered Constitution Party Id Relationship Subscriber Subscriber Id [place] [address] [facility] Commercial [id number] Self/Same As Patient [id number] [place] [id number] Self Pay Personal Payment (Suárez - No Insurance) Plan of Care Instructions [facility] Social History Query Response Date [...]
--- NOTE | 2018-10-24 12:48 | ED General ---
General Chief Complaint: Head/Cervical Problems Stated Complaint: HEADACHE History of Present Illness Date Seen by Provider: Oct 24, 2018 Time Seen by Provider: 12:48 Initial Comments Patient presents emergency department for evaluation of a headache that has been going on for at least several days. She says she has a history of migraine headaches and takes Maxalt and sees a neurologist but she is not due to see her neurologist until next week. Her headache is diffuse and all worse behind her eyes and associated with nausea and photophobia phonophobia but no vomiting fevers chills or neck stiffness. She called her neurologist and they told her to come to the emergency department. She brought some paperwork with her that showed that she was in this emergency department on June [id number] and was given Decadron Benadryl Toradol and Compazine IM. She said that her headache improved significantly but that the Benadryl made her anxious. I asked her if this was more like a dystonic reaction where she was altered shaking he cannot sit still from the Compazine or whether this was just anxiety. She said she just felt anxious so I doubt this was a dystonic reaction she said she has had Phenergan Toradol and Decadron IM in the past with no problems and it makes her feel sleepy and generally makes her feel well. She is in nad with normal VS. Allergies and Home Medications Allergies Coded Allergies: menthol (Verified Allergy, Unknown, 10/24/18) diphenhydramine (Verified Adverse Reaction, Unknown, 10/24/18) Home Medications Promethazine HCl 25 Mg Tablet, 25 MG PO Q6H PRN for NAUSEA/VOMITING Prescribed by: FRANCOISE WIGGINS on 10/24/18 1309 Patient Home Medication List Home Medication List Reviewed: Yes Review of Systems Review of Systems Constitutional: no symptoms reported Respiratory: no symptoms reported Cardiovascular: no symptoms reported Musculoskeletal: no symptoms reported Psychiatric/Neurological: Headache All Other Systems Reviewed Negative Unless Noted: Yes Physical Exam Vital Signs Vital Signs - First Documented 10/24/18 12:50 Temp 97.2 Pulse 108 Resp 18 B/P (MAP) 101/73 (82) Pulse Ox 98 O2 Delivery Room Air Capillary Refill : Height, Weight, BMI Height: '" Weight: lbs. oz. kg; BMI Method: General Appearance: No Apparent Distress, WD/WN HEENT: PERRL/EOMI Neck: Full Range of Motion, Non Tender Respiratory: Normal Breath Sounds Cardiovascular: Regular Rate, Rhythm Neurologic/Psychiatric: Alert, Oriented x3, No Motor/Sensory Deficits, Normal Mood/Affect Skin: Normal Color Progress/Results/Core Measures Suspected Sepsis SIRS Temperature: Pulse: Respiratory Rate: Blood Pressure / Mean: Results/Orders My Orders Orders - FRANCOISE WIGGINS DO Ketorolac Injection (Toradol Injection) (10/24/18 13:15) Promethazine Injection (Phenergan Injec (10/24/18 13:15) Dexamethasone Injection (Decadron Inject (10/24/18 13:15) Sumatriptan Injection (Imitrex Injection (10/24/18 13:15) Acetaminophen Tablet (Tylenol Tablet) (10/24/18 13:15) Vital Signs/I&O 10/24/18 12:50 Temp 97.2 Pulse 108 Resp 18 B/P (MAP) 101/73 (82) Pulse Ox 98 O2 Delivery Room Air Capillary Refill : Progress Note : Progress Note Patient with her baseline migraine headache that is not helping with her outpatient medications so she was given Toradol Decadron Phenergan Imitrex and Tylenol here. There is no red flag signs or symptoms to sustaining further workup such as lumbar puncture or imaging studies as her neurologic exam is normal and her vital signs are unremarkable as well and she has no concerning symptoms on review of systems. She was told to go home and try and rest. She was told to come back to emergency department if she is having worsening pain fevers vomiting or other general concerns. She was encouraged to keep her neurology follow-up. Patient aware and agreeable with plan for discharge and verbalized understanding of the need for short-term follow-up and strict ED return precautions discussed as above. Departure Impression Primary Impression: Headache Qualified Codes: R51 - Headache Disposition: 01 HOME, SELF-CARE Condition: Stable Departure-Patient Inst. Referrals: NO,LOCAL PHYSICIAN (PCP/Family) Primary Care Physician Patient Instructions: Migraine Headache (DC) Scripts Promethazine HCl (Promethazine Tablet) 25 Mg Tablet 25 MG PO Q6H PRN for NAUSEA/VOMITING, #10 TAB Prov: FRANCOISE WIGGINS DO 10/24/18 FRANCOISE WIGGINS DO Oct 24, 2018 12:48
[2018-10-24] MEDS ORDERED: PROM25TA14 PO (13:09)
[2018-10-24] MEDS ORDERED: ACETAMINOPHEN 500 MG TAB (TYLENOL) PO ONE (13:15)
[2018-10-24] MEDS ORDERED: KETOROLAC 60 MG/2 ML VIAL IM ONE (13:15)
[2018-10-24] MEDS ORDERED: PROMETHAZINE INJ 25 MG/ML (PHENERGAN) AMP IM ONE (13:15)
[2018-10-24] MEDS ORDERED: SUMAtriptan 6 MG/0.5 ML (IMITREX) INJ SQ ONE (13:15)
[2018-10-24] MEDS ORDERED: DEXAMETHASONE 10 MG/ML (DECADRON) 1 ML VIAL IM ONE (13:15)
[2018-10-24 13:43] VITALS: BP 101/73
== END 2018-10-24 13:40 | disposition home or self-care (01) ==
LOC: EDUNIT# 12:40 → ER FS 12:42
DX: R51 Headache (principal); F41.9 Anxiety disorder, unspecified; Z88.8 Allergy status to other drugs, medicaments and biological substances; Z86.69 Personal history of other diseases of the nervous system and sense organs
CPT/HCPCS: 99284

== ENCOUNTER → 2018-11-23 | Outpatient (CLI) | payer BC ==
[~2018-11-23] MED LIST changes: -GADOBUTROL 10 MMOL/10 ML (GADAVIST) VIAL IV ONE; +PROM25TA14 PO
--- NOTE | 2018-11-23 15:44 | Diagnostic Imaging Report ---
PROCEDURE: US Thyroid. TECHNIQUE: Multiple real-time grayscale images were obtained of the thyroid in various projections. INDICATION: Hair loss. FINDINGS: Right lobe of the thyroid measures 4.1 x 1.6 x 1.5 cm and the left lobe measures 4.0 x 1.5 x 1.4 cm. Both lobes show fairly homogeneous echotexture. No discrete thyroid mass is detected. The isthmus is 3 mm in thickness. IMPRESSION: Unremarkable thyroid ultrasound. Dictated by: Dictated on workstation # [id number]
== END ==
LOC: RAD 12:41
PROVIDERS: ATTEND Nurse Practitioner Family
DX: L65.9 Nonscarring hair loss, unspecified (principal); G43.909 Migraine, unspecified, not intractable, without status migrainosus; R68.89 Other general symptoms and signs
CPT/HCPCS: 76536

== ENCOUNTER → 2019-01-16 | Outpatient (CLI) | payer BC ==
[~2019-01-16] MED LIST changes: +CATHETER FLUSH 10 ML SYR IV PRN; +HOLD METFORMIN - RECEIVED CONTRAST 20 ML VIAL IV SCH; +IOHEXOL 350 MG/ML 100 ML (OMNIPAQUE 350) VIAL IV ONE; +NS 100 ML (IVPB) BAG IV ONE
[2019-01-16 14:56] LABS: BASOPHILS % (AUTO) 1 % (0-10); EOSINOPHILS # (AUTO) 0.2 10^3/uL (0.0-0.3); EOSINOPHILS % (AUTO) 3 % (0-10); HEMATOCRIT 44 % (35-52); HEMOGLOBIN 14.7 G/DL (11.5-16.0); LYMPHOCYTES # (AUTO) 1.8 X 10^3 (1.0-4.0); LYMPHOCYTES % (AUTO) 30 % (12-44); MEAN CORPUSCULAR HEMOGLOBIN 29 PG (25-34); MEAN CORPUSCULAR HGB CONC 33 G/DL (32-36); MEAN CORPUSCULAR VOLUME 87 FL (80-99); MEAN PLATELET VOLUME 10.9 FL (7.4-10.4); MONOCYTES # (AUTO) 0.4 X 10^3 (0.0-1.0); MONOCYTES % (AUTO) 6 % (0-12); NEUTROPHILS # (AUTO) 3.6 X 10^3 (1.8-7.8); NEUTROPHILS % (AUTO) 61 % (42-75); PLATELET COUNT 268 10^3/uL (130-400); RED CELL DISTRIBUTION WIDTH 13.1 % (10.0-14.5); WHITE BLOOD COUNT 5.9 10^3/uL (4.3-11.0)
[2019-01-16 15:11] LABS: ALBUMIN 4.2 GM/DL (3.2-4.5); BILIRUBIN,TOTAL 0.3 MG/DL (0.1-1.0); CALCIUM 9.3 MG/DL (8.5-10.1); CREATININE SERUM 1.05 MG/DL (0.60-1.30); POTASSIUM 4.1 MMOL/L (3.6-5.0); TOTAL PROTEIN 7.5 GM/DL (6.4-8.2)
--- NOTE | 2019-01-16 16:18 | Diagnostic Imaging Report ---
PROCEDURE: CT abdomen and pelvis with contrast. TECHNIQUE: Multiple contiguous axial images were obtained through the abdomen and pelvis after administration of intravenous contrast. Auto Exposure Controls were utilized during the CT exam to meet ALARA standards for radiation dose reduction. INDICATION: Right flank and right lower quadrant pain with nausea and diarrhea. FINDINGS: A tubular structure, best seen in coronal reconstructions 52, series 601, is believed to reflect the normal appendix, retrocecal and oriented cephalad. There are no pericecal inflammatory changes. There are no findings of appendicitis. There is some fecalization of distal small bowel content with no proximal dilatation, air-fluid levels, or lynn obstruction. There is mildly elevated colonic fecal load without obstruction or focal impaction. Gallbladder is absent. No pathological bile duct dilatation. Liver, spleen, adrenals, pancreas, and kidneys are all unremarkable. No radiodense stone. No ascites, abscess, hematoma, or fluid collection. The adnexa and urinary bladder appear unremarkable. The osseous structures are nonacute. IMPRESSION: No evidence for appendicitis or urinary tract obstruction. Borderline colonic constipation and mild fecalization of distal small bowel without small or large bowel wall thickening, inflammatory process, perforation, obstruction, abscess, fluid collection, or ascites. Dictated by: Dictated on workstation # [id number]
== END ==
LOC: RAD 14:44
PROVIDERS: ATTEND Nurse Practitioner Family
DX: R10.31 Right lower quadrant pain (principal); R11.0 Nausea; R19.7 Diarrhea, unspecified
CPT/HCPCS: 36415; 74177; 80053; 85025; 86141

== ENCOUNTER 2019-04-07 20:54 | Outpatient (CLI) | payer BC ==
[~2019-04-07 20:54] MED LIST changes: -CATHETER FLUSH 10 ML SYR IV PRN; -HOLD METFORMIN - RECEIVED CONTRAST 20 ML VIAL IV SCH; -IOHEXOL 350 MG/ML 100 ML (OMNIPAQUE 350) VIAL IV ONE; -NS 100 ML (IVPB) BAG IV ONE
== END 2019-04-08 06:57 | disposition home or self-care (01) ==
LOC: SLEEP 20:54
PROVIDERS: ATTEND Nurse Practitioner Family
DX: G47.33 Obstructive sleep apnea (adult) (pediatric) (principal)
CPT/HCPCS: 95811

== ENCOUNTER → 2020-09-25 | Outpatient (CLI) | payer BC, OTHER ==
--- NOTE | 2020-09-27 13:25 | Diagnostic Imaging Report ---
INDICATION: Routine screening. COMPARISON is made with prior mammogram from 03/02/2018. 2-D and 3-D bilateral screening mammography was performed with CAD. Scattered fibroglandular densities are identified bilaterally. The parenchymal pattern is stable. No mass or malignant appearing microcalcifications are seen. Axillae are unremarkable. IMPRESSION: BI-RADS Category 2 No mammographic features suspicious for malignancy are identified. ACR BI-RADS Category 2: Benign findings. Result letter will be mailed to the patient. Note: At least 10% of breast cancer is not imaged by mammography. Dictated by: Dictated on workstation # [id number]
== END ==
LOC: RAD 11:30
PROVIDERS: ATTEND Nurse Practitioner Family
DX: Z12.31 Encounter for screening mammogram for malignant neoplasm of breast (principal)
CPT/HCPCS: 77063; 77067